=== PATIENT | female | born 1955 | race Caucasian/White ===

== ENCOUNTER → 2016-08-09 | Outpatient (CLI) | payer MEDICARE ==
[~2016-08-09] MED LIST: ALBU18HF2 ORAL INH; ASPI325T PO; CHLO25TA2 PO; CRAN400C PO; ESOM40CA PO; FLUT12AE ORAL INH; FURO-153 PO; INSU100I21 SQ; INSU100I3 SQ; LABE100T PO; LOSA100T44 PO; MULT-57 PO; PARO20TA43 PO; POTA20TA87 PO; PRAS10TA5 PO; TIOT18CA3 ORAL INH
--- NOTE | 2016-08-09 11:59 | DI ---
Indication: ITS.REASON: H53.451 Other localized visual field defect, right eye PROCEDURE: US CAROTID DOPP COMPLETE: TECHNIQUE: Grayscale, color and duplex Doppler imaging was performed of the carotid systems bilaterally. Velocities in cm/sec - validated velocity measurements with angiographic measurements, velocity criteria are extrapolated from diameter data as defined by the Society of Radiologists in Ultrasound Consensus Conference Radiology 2003; 229;340-346. RIGHT: PSV ICA 81 EDV ICA 15 PSV CCA 70 EDV CCA 8 SVR 1.2 PSV ECA 70 ICA Diameter reduction 10%-30% (1.0-1.2 PSV<110)% LEFT: PSV ICA 73 EDV ICA 15 PSV CCA 73 EDV CCA 13 SVR 1.0 PSV ECA 106 ICA Diameter reduction 10%-30% (1.0-1.2 PSV<110)% The right vertebral artery is patent with cephalic flow. The left vertebral artery is patent with cephalic flow. Mild plaque in the carotid bulbs. No velocity elevation. IMPRESSION: No hemodynamically significant carotid stenosis. .
== END ==
LOC: IMA 10:47
PROVIDERS: ATTEND Nurse Practitioner Family
DX: H53.451 Other localized visual field defect, right eye (principal)